=== PATIENT | female | born 1965 ===

== ENCOUNTER 2017-09-20 15:19 | Emergency (ER) | payer OTHER ==
[2017-09-20 15:36] VITALS: TEMP 98.6
[2017-09-20] MEDS ORDERED: Sodium Chloride 0.9% 1,000 ML IV STA (15:56)
[2017-09-20] MEDS ORDERED: Dexamethasone 4 mg/1 ml IVP STA (15:56)
[2017-09-20] MEDS ORDERED: Dexamethasone 4 mg/1 ml ONE (16:16)
--- NOTE | 2017-09-20 16:41 | C.PDOC ---
History Of Present Illness 51 yr old female with PMHx of migraine, presents to the ER with 5 day history of left sided headache associated with photophobia, runny nose, cough, generalized body aches and chills. Patient states the pain 10/10. Patient states she took Tylenol at home, last tee was 5 hrs ago. Patient denies fever, chest pain, SOB, nausea, vomiting, abdominal pain, neck fletcher, weakness or numbness. Time Seen by Provider: 09/20/17 15:45 Chief Complaint (Nursing): Headache History Per: Patient History/Exam Limitations: no limitations Onset/Duration Of Symptoms: Days (5) Current Symptoms Are (Timing): Still Present Associated Symptoms: Photophobia Past Medical History Reviewed: Historical Data, Nursing Documentation, Vital Signs Vital Signs: Last Vital Signs Temp 98.6 F 09/20/17 15:32 Pulse 104 H 09/20/17 15:32 Resp 18 09/20/17 15:32 BP 128/85 09/20/17 15:32 Pulse Ox 95 09/20/17 17:23 - Medical History PMH: Migraine Family History: States: No Known Family Hx - Social History Hx Tobacco Use: No Hx Alcohol Use: No Hx Substance Use: No - Immunization History Hx Tetanus Toxoid Vaccination: Yes Hx Influenza Vaccination: No Hx Pneumococcal Vaccination: No Review Of Systems Except As Marked, All Systems Reviewed And Found Negative. Constitutional: Positive for: Chills, Other ((+) general body aches). Negative for: Fever Eyes: Positive for: Vision Change (Photophobia) ENT: Positive for: Nose Discharge (runny nose) Cardiovascular: Negative for: Chest Pain Respiratory: Positive for: Cough. Negative for: Shortness of Breath Gastrointestinal: Negative for: Nausea, Vomiting, Abdominal Pain Musculoskeletal: Negative for: Neck Pain Neurological: Positive for: Headache. Negative for: Weakness, Numbness Physical Exam - Physical Exam Appears: Non-toxic, In Acute Distress (looks in pain) Skin: Warm, Dry, No Rash Head: Atraumatic, Normacephalic Eye(s): bilateral: Normal Inspection, PERRL, EOMI Nose: Other ((+) congestion) Oral Mucosa: Moist Lips: Normal Appearing Throat: Normal, No Erythema, No Exudate, No Drooling Neck: Normal, Normal ROM, Supple Cardiovascular: Rhythm Regular, No Murmur Respiratory: Normal Breath Sounds, No Rales, No Rhonchi, No Stridor, No Wheezing Gastrointestinal/Abdominal: Normal Exam, Soft, No Tenderness, No Guarding, No Rebound Extremity: Normal ROM, No Swelling Neurological/Psych: Oriented x3, Normal Speech, Normal Motor ED Course And Treatment O2 Sat by Pulse Oximetry: 95 (RA) Pulse Ox Interpretation: Normal Medical Decision Making Medical Decision Making: PLAN: * Imitrex SC * Toradol IM * Decadron IVP * Reglan IVP * Sodium Chloride IV Disposition Counseled Patient/Family Regarding: Diagnosis, Need For Followup, Rx Given - Disposition Disposition: HOME/ ROUTINE Disposition Time: 17:21 Condition: IMPROVED Prescriptions: Ibuprofen [Motrin] 600 mg PO TID #15 tab SUMAtriptan [Imitrex] 1 tab PO PRN PRN #12 tab PRN Reason: Pain, Mild (1-3) Instructions: Migraine Headache (ED) Forms: Gen Discharge Inst Turkish, [facility] (Turkish), General Discharge Instructions - POA Present On Arrival: None - Clinical Impression Clinical Impression: Migraine - Scribe Statement The provider has reviewed the documentation as recorded by the Domonique Gardiner Provider Attestation: All medical record entries made by the Domonique were at my direction and personally dictated by me. I have reviewed the chart and agree that the record accurately reflects my personal performance of the history, physical exam, medical decision making, and the department course for this patient. I have also personally directed, reviewed, and agree with the discharge instructions and disposition.
[2017-09-20 17:39] VITALS: BP 125/62; PULSE 84; RESP 16; O2SAT 97
== END 2017-09-20 17:39 | disposition home or self-care (01) ==
LOC: C.ER 15:19
DX: G43.909 Migraine, unspecified, not intractable, without status migrainosus (principal)
CPT/HCPCS: 96372; 96374; 96375; 99284; J1100; J1885; J2765; J3030; J7040

== ENCOUNTER 2018-09-08 13:43 | Emergency (ER) | payer OTHER ==
[2018-09-08 14:08] VITALS: BP 133/81; PULSE 98; RESP 20; TEMP 98; O2SAT 98
[2018-09-08] MEDS ORDERED: Naproxen 550 mg Tab PO STA (14:23)
[2018-09-08] MEDS ORDERED: Naproxen 550 mg Tab PO ONE (14:31)
--- NOTE | 2018-09-08 14:45 | RAD ---
HISTORY: cough, fever COMPARISON: Chest x-ray performed 08/24/16 TECHNIQUE: Chest PA and lateral FINDINGS: Examination limited by habitus. LUNGS: Biapical pleural thickening. No focal consolidation. Please note that chest x-ray has limited sensitivity for the detection of pulmonary masses. PLEURA: No significant pleural effusion identified. No definite pneumothorax . CARDIOVASCULAR: Heart size appears within normal limits. No atherosclerotic calcification present. OSSEOUS STRUCTURES: Mild degenerative changes. VISUALIZED UPPER ABDOMEN: Unremarkable. OTHER FINDINGS: None. IMPRESSION: No focal consolidation identified.
--- NOTE | 2018-09-08 15:07 | C.PDOC ---
History Of Present Illness 52 year old female presents to the emergency department with complaints of body aches, productive cough with green mucus, sore throat, headache, fever, and chills for the last few days. Patient denies abdominal pain, nausea, vomiting, diarrhea, and dysuria. Time Seen by Provider: 09/08/18 14:11 Chief Complaint (Nursing): Headache History Per: Patient History/Exam Limitations: no limitations Onset/Duration Of Symptoms: Days Current Symptoms Are (Timing): Still Present Quality: Aching Associated Symptoms: Other (body aches, productive cough, sore throat, headache, fever, chills). denies: Vomiting Past Medical History Reviewed: Historical Data, Nursing Documentation, Vital Signs Vital Signs: Last Vital Signs Temp 98 F 09/08/18 14:04 Pulse 98 H 09/08/18 14:04 Resp 20 09/08/18 14:04 BP 133/81 09/08/18 14:04 Pulse Ox 98 09/08/18 14:04 - Medical History PMH: Migraine Denies: Chronic Kidney Disease Surgical History: No Surg Hx Family History: States: No Known Family Hx - Social History Hx Tobacco Use: No Hx Alcohol Use: No Hx Substance Use: No - Immunization History Hx Tetanus Toxoid Vaccination: Yes Hx Influenza Vaccination: No Hx Pneumococcal Vaccination: No Review Of Systems Constitutional: Positive for: Fever, Chills, Other (body aches) Respiratory: Positive for: Cough (productive), Sputum (green) Gastrointestinal: Negative for: Nausea, Vomiting, Abdominal Pain, Diarrhea Genitourinary: Negative for: Dysuria Neurological: Positive for: Headache Physical Exam - Physical Exam Appears: Non-toxic, In Acute Distress (uncomfortable), Other (coughing occasionally) Skin: Normal Color, Warm, Dry Head: Atraumatic, Normacephalic Eye(s): bilateral: Normal Inspection, PERRL, EOMI Nose: Normal Oral Mucosa: Moist Throat: Normal, Erythema, No Exudate, No Other (tonsillar swelling) Neck: Normal, Supple Chest: Symmetrical, No Tenderness Cardiovascular: Rhythm Regular, No Murmur Respiratory: Normal Breath Sounds, No Rales, No Rhonchi, No Wheezing Gastrointestinal/Abdominal: Soft, No Tenderness, No Guarding, No Rebound Extremity: Normal ROM Neurological/Psych: Oriented x3 ED Course And Treatment O2 Sat by Pulse Oximetry: 98 (RA) Pulse Ox Interpretation: Normal Progress Note: Plan: Flu Swab. CXR. Naproxen 550mg PO. Tessalon Perles 100mg PO. POC Urine Disposition Counseled Patient/Family Regarding: Studies Performed, Diagnosis, Need For Followup, Rx Given - Disposition Referrals: [facility] [Outside] Disposition: HOME/ ROUTINE Disposition Time: 15:35 Condition: STABLE Additional Instructions: FOLLOW UP WITH YOUR DOCTOR/CLINIC IN 1-2 DAYS USE MEDICATIONS DIRECTED DRINK PLENTY OF FLUIDS AND GET REST RETURN TO EMERGENCY ROOM IF YOUR SYMPTOMS BECOME WORSE SEGUIR CON FERNANDO MDICO / CLNICA EN 1-2 JONES UTILICE MEDICAMENTOS MYKE SE DIRIGE KARSTEN MUCHOS FLUIDOS Y DESCANSE VUELVA A LA STARLA DE EMERGENCIA SI SAIGE SNTOMAS SE HACEN PEOR Prescriptions: Benzonatate [Tessalon Perles] 100 mg PO BID PRN #15 sgl PRN Reason: Cough Naproxen 375 mg PO BID PRN #20 tablet PRN Reason: pain Oseltamivir Phosphate [Tamiflu] 75 mg PO BID #10 capsule Instructions: Viral Syndrome (DC) Forms: [employer] (Cambodian) Print Language: NORWEGIAN - Clinical Impression Clinical Impression: Influenza-like illness - Scribe Statement The provider has reviewed the documentation as recorded by the Scribe (Jose Abbott) Provider Attestation: All medical record entries made by the Scribe were at my direction and personally dictated by me. I have reviewed the chart and agree that the record accurately reflects my personal performance of the history, physical exam, medical decision making, and the department course for this patient. I have also personally directed, reviewed, and agree with the discharge instructions and disposition.
== END 2018-09-08 15:46 | disposition home or self-care (01) ==
LOC: C.ER 13:43
DX: J11.1 Influenza due to unidentified influenza virus with other respiratory manifestations (principal)